=== PATIENT | male | born 1950 | race Caucasian/White ===

== ENCOUNTER 2019-08-10 13:08 | Day surgery (SDC) | payer OTHER ==
[~2019-08-10] VITALS: Ht 167.6 cm; Wt 78.9 kg
[~2019-08-10 13:08] MED LIST: LISINOPRIL5 MG PO
[2019-08-10] MEDS ORDERED: OMEPRAZOLE20 MG PO (13:36)
[2019-08-10] MEDS ORDERED: MULTI-VITAMIN1 EACH PO (13:36)
--- NOTE | 2019-08-10 15:33 | NUR ---
08/10/19 1533 Svetlana Viera 1528- PT ARRIVES TO PACU EASILY AROUSABLE TO VOICE. PT REPORTS NO PAIN OR NAUSEA AND FALLS TO SLEEP. RESP EVEN AND UNLABORED. OXYGEN SAT HIGH 90'S ON 2L VIA NC. 153- OXYGEN TITRATED OFF. 153- PT PASSING FLATUS.
--- NOTE | 2019-08-11 22:02 | OR ---
[facility] [address], [place] [address] Signed DATE OF OPERATION: 08/10/2019 SURGEON: Aaron Saul MD PREOPERATIVE DIAGNOSIS: Surveillance colonoscopy. POSTOPERATIVE DIAGNOSES: 1. Diverticulosis of sigmoid and left colon. 2. Internal hemorrhoids. PROCEDURE PERFORMED: Total colonoscopy to cecum. ANESTHESIA: Intravenous sedation, fentanyl 100 mcg and versed 5 mg. INDICATION: This 69-year-old white man is a patient of Dr. Briscoe, is referred for colonoscopy for surveillance. He last underwent colonoscopy 10 years ago in 2009, where he was found to have internal hemorrhoids. There were no other findings of concern. He is symptom free, having no bleeding, diarrhea, or constipation. He has no family history of colon cancer. He understands the risks of bleeding, infection, and perforation related to colonoscopy and wished to proceed. FINDINGS: The prep was excellent. Complete colonoscopy was undertaken to cecum without problem. He had numerous diverticula of the sigmoid and left colon, but no sign of polyps or colitis. Internal hemorrhoidal changes were noted as well. DESCRIPTION OF PROCEDURE: The patient was brought to the endoscopy suite and placed in lateral decubitus position, given intravenous sedation to the point of slurred speech and nystagmus. Digital rectal examination showed no abnormality. An Olympus video colonoscope was passed in the rectum and manipulated throughout the colon ultimately intubating the cecum itself. Numerous diverticula were seen in the sigmoid and left colon. The scope was withdrawn from the cecum and examination throughout showed no sign of polyps or colitis, only diverticular changes on the left side as described. Retroflexed view of the rectum did confirm some internal hemorrhoidal changes but no acute problem currently. Scope was straightened, withdrawn, and removed and the patient was taken to recovery room in good Electronically Signed By: AARON SAUL MD 08/11/19 4233 PATIENT NAME: LADAN SOTELO OPERATIVE REPORT DATE OF : 52 REPORT #: [id number] PHYSICIAN: AARON SAUL MD PCP: SUSANNAH BRISCOE MD REPORT IS CONFIDENTIAL AND NOT TO BE RELEASED WITHOUT AUTHORIZATION [facility] [address] [facility] [place], [place] [address] Signed condition. CONCLUDING DIAGNOSIS: Diverticular changes of sigmoid and internal hemorrhoids. No other abnormalities. PLAN: We would recommend repeat colonoscopy in 10 years, sooner if clinically indicated. Recommend also high-fiber diet or Citrucel one scoop p.o. daily. MD MAURICIO Abad/JERRICAL /[id number] cc: Dr. Briscoe Copies: ~ Electronically Signed By: AARON SAUL MD 08/11/19 2202 PATIENT NAME: LADAN SOTELO OPERATIVE REPORT DATE OF : 52 REPORT #: [id number] PHYSICIAN: AARON SAUL MD PCP: SUSANNAH BRISCOE MD REPORT IS CONFIDENTIAL AND NOT TO BE RELEASED WITHOUT AUTHORIZATION
== END 2019-08-10 16:10 | disposition home or self-care (01) ==
LOC: OPS 13:08 → DS 13:10 → OPS 14:00
PROVIDERS: Surgery
PROC: 0DJD8ZZ Inspection of Lower Intestinal Tract, Via Natural or Artificial Opening Endoscopic (ICD-10-PCS; principal; 2019-08-10 14:00)
DX: Z12.11 Encounter for screening for malignant neoplasm of colon (principal); K64.8 Other hemorrhoids; K57.30 Diverticulosis of large intestine without perforation or abscess without bleeding; K21.9 Gastro-esophageal reflux disease without esophagitis; I11.9 Hypertensive heart disease without heart failure; Z98.890 Other specified postprocedural states
CPT/HCPCS: 99153; G0500; J2250; J3010; J7121

== ENCOUNTER 2023-04-03 03:38 | Emergency (ER) | payer MEDICARE, OTHER ==
[~2023-04-03] VITALS: Ht 167.6 cm; Wt 78.9 kg
[~2023-04-03 03:38] MED LIST changes: +MULTI-VITAMIN1 EACH PO; +OMEPRAZOLE20 MG PO
[2023-04-03 06:00] VITALS: BP 146/84
--- NOTE | 2023-04-04 16:47 | EKG ---
[facility] [address] [facility] [place], [place] [address] Signed Normal sinus rhythm Normal ECG No previous ECGs available Confirmed by SAMINA NAVA MD ([id number]) on 04/04/2023 4:46:46 PM Electronically Signed By: SAMINA NAVA 04/04/23 1647 PATIENT NAME: LADAN SOTELO Electrocardiogram DATE OF : 52 PHYSICIAN: SAMINA NAVA REPORT #: [id number] REPORT IS CONFIDENTIAL AND NOT TO BE RELEASED WITHOUT AUTHORIZATION
== END 2023-04-03 06:04 | disposition home or self-care (01) ==
LOC: ED 03:38
DX: R10.9 Unspecified abdominal pain (principal); K80.20 Calculus of gallbladder without cholecystitis without obstruction; I10 Essential (primary) hypertension; Z79.899 Other long term (current) drug therapy
CPT/HCPCS: 36415; 74177; 76705; 80053; 81003; 83690; 85025; 85379; 93005; 93010; 96375; 99284 25; J1885; J2270; J2405; J7121; Q9967

== ENCOUNTER 2024-07-23 03:40 | Emergency (ER) | payer MEDICARE, OTHER ==
[~2024-07-23] VITALS: Ht 167.6 cm; Wt 76.4 kg
[2024-07-23] MEDS ORDERED: ondansetron HCL 4 MG/2 ML VIAL IV ONE (04:00)
[2024-07-23 04:04] LABS: BASOPHILS 1.5 % (0-2); EOSINOPHILS 6.5 % (0-6); HEMATOCRIT 46.5 % (35.0-50.0); HEMOGLOBIN 15.7 g/dL (12.0-18.0); LYMPHOCYTES 30.7 % (24-44); MCH 30.6 (27-36); MCHC 33.7 g/dl (30-36); MCV 90.5 fl (81-99); MONOCYTES 9.9 % (0-12); NEUTROPHILS 51.4 % (39-80); PLATELET COUNT 240 K/uL (140-440); RBC 5.13 M/ul (4.3-5.7); RDW 13.6 (10.5-15.0)
[2024-07-23 04:21] LABS: ALBUMIN/GLOBULIN RATIO 1.05 (1.1-2.4); BILIRUBIN, TOTAL 0.5 ng/dL (0.2-1.0); BUN/CREATININE RATIO 18.46 (6.0-28.6); CALCIUM 9.2 mg/dL (8.5-10.1); CREATININE, SERUM 1.3 mg/dL (0.70-1.30); MAGNESIUM 2.1 mg/dL (1.8-2.4); PROTEIN, TOTAL 7.8 g/dL (6.4-8.2)
[2024-07-23] MEDS ORDERED: MORPHINE SULFATE 4 MG/ML VIAL IV ONE (04:45)
[2024-07-23] MEDS ORDERED: LACTATED RINGER'S 1,000 ML IV ONE (04:45)
[2024-07-23] MEDS ORDERED: MIDAZOLAM HCL 100 MG in DEXTROSE 5% 80 ML IV SCH (05:00)
[2024-07-23] MEDS ORDERED: HYDROmorphone HCL 1 MG/ML SYR IV PRN (06:00)
[2024-07-23] MEDS ORDERED: KETOROLAC TROMETHAMINE 30 MG/ML VIAL IV ONE (06:00)
[2024-07-23 06:10] LABS: BILIRUBIN, URINE NEGATIVE (negative); BLOOD/HGB, URINE NEGATIVE (Negative); KETONE, URINE NEGATIVE (Negative); LEUK ESTERASE, URINE NEGATIVE (negative); NITRITE, URINE NEGATIVE (negative)
[2024-07-23 06:44] LABS: INFLUENZA B NAA NEGATIVE (NEGATIVE); RESPIRATORY SYNCYTIAL VIR NAA NEGATIVE (NEGATIVE)
[2024-07-23] MEDS ORDERED: ONDANSETRON ODT8 MG PO (07:07)
[2024-07-23] MEDS ORDERED: TRAMADOL HCL50 MG PO (07:07)
[2024-07-23] MEDS ORDERED: DICYCLOMINE HCL10 MG PO (07:07)
[2024-07-23 07:24] VITALS: BP 139/81
== END 2024-07-23 07:26 | disposition home or self-care (01) ==
LOC: ED 03:40
PROVIDERS: Family Medicine
DX: A08.4 Viral intestinal infection, unspecified (principal); I10 Essential (primary) hypertension; Z79.899 Other long term (current) drug therapy
CPT/HCPCS: 36415; 74177; 80053; 81003; 83690; 83735; 85025; 85379; 87502; 96361; 96375; 99284-25; J1171; J1885; J2270; J2405; J7121; Q9967; U0002

== ENCOUNTER 2024-10-15 07:55 | Day surgery (SDC) | payer MEDICARE, OTHER ==
[2024-10-12 15:58] VITALS: BP 128/98
[~2024-10-15] VITALS: Ht 167.6 cm; Wt 77.3 kg
[~2024-10-15 07:55] MED LIST changes: +CEFAZOLIN SODIUM 2 GM/20 ML SYR IV SCH; +DEXAMETHASONE SOD PHOS 4 MG/ML VIAL ONE; +DICYCLOMINE HCL10 MG PO; +FAMOTIDINE 20 MG/ 2 ML VIAL ONE; +HEParin SOD (PORCINE) 5,000 UNIT/ML SDV SUB-Q SCH; +IBLOOD GLUCOSE TEST STRIP 1 EA TEST VI PRN; +KETOROLAC TROMETHAMINE 30 MG/ML VIAL ONE; +LACTATED RINGER'S 1,000 ML IV ONE; +LACTATED RINGER'S 1,000 ML IV SCH; +LIDOCAINE HCL 1% 5 ML SDV INJ ONE; +LIDOCAINE HCL 4% 5 ML AMP ONE; +METOCLOPRAMIDE HCL 10 MG/2 ML SDV ONE; +MIDAZOLAM HCL 2 MG/2 ML VIAL ONE; +ONDANSETRON ODT8 MG PO; +ROCURONIUM BROMIDE 50 MG/5 ML SYR ONE; +SUCCINYLCHOLINE IN 0.9% NACL 200 MG/10 ML SYRINGE ONE; +SUGAMMADEX SODIUM 200 MG/2 ML ML ONE; +TRAMADOL HCL50 MG PO; +fentaNYL citrate 100 MCG/2 ML VIAL ONE; +ondansetron HCL 4 MG/2 ML VIAL ONE; +propofoL 200 MG/20 ML VIAL ONE
[2024-10-15 08:22] VITALS: BP 139/80
[2024-10-15] MEDS ORDERED: iopamidoL 30 ML VIAL ONE (08:24)
[2024-10-15] MEDS ORDERED: SODIUM CHLORIDE 0.9% 60 ML IV ONE (08:25)
[2024-10-15] MEDS ORDERED: propofoL 200 MG/20 ML VIAL ONE (09:16)
[2024-10-15] MEDS ORDERED: ondansetron HCL 4 MG/2 ML VIAL IV PRN (09:45)
[2024-10-15] MEDS ORDERED: MORPHINE SULFATE 10 MG/ML VIAL IV PRN (09:45)
[2024-10-15] MEDS ORDERED: NALOXONE HCL 0.4 MG SYR IV PRN ×2 (09:45→11:00)
[2024-10-15] MEDS ORDERED: fentaNYL citrate 50 MCG/ML SDV IV PRN (09:45)
[2024-10-15] MEDS ORDERED: PROCHLORPERAZINE EDISYLATE 10 MG/2 ML VIAL IV PRN (09:45)
[2024-10-15] MEDS ORDERED: IBLOOD GLUCOSE TEST STRIP 1 EA TEST VI PRN (09:45)
[2024-10-15] MEDS ORDERED: METOCLOPRAMIDE HCL 10 MG/2 ML SDV IV PRN (09:45)
[2024-10-15] MEDS ORDERED: droPERidol 5 MG/2 ML VIAL IV PRN (09:45)
--- NOTE | 2024-10-15 10:48 | NUR ---
10/15/24 1048 Lori Velez 1037-PT ARRIVES TO PACU VIA STRETCHER RESTING SEMI FOWLERS, PT NOT RESPONSIVE TO NOXIOUS STIMULI, VSS ON 10L VIA MASK AND OPA IN PLACE, PT REQUIRING MANUAL JAW THRUST. RR EVEN AND UNLABORED.
[2024-10-15] MEDS ORDERED: TYLENOL EXTRA500 MG PO (10:53)
[2024-10-15] MEDS ORDERED: PERCOCET 7.5-31 EACH PO (10:53)
[2024-10-15] MEDS ORDERED: MOTRIN IB200 MG PO (10:54)
[2024-10-15] MEDS ORDERED: IBUPROFEN 600 MG TAB PO PRN (11:00)
[2024-10-15] MEDS ORDERED: OXYCODONE/APAP 7.5/325 TAB PO PRN (11:00)
[2024-10-15] MEDS ORDERED: LACTATED RINGER'S 1,000 ML IV SCH (11:00)
[2024-10-15] MEDS ORDERED: ACETAMINOPHEN 500 MG TAB PO PRN (11:00)
[2024-10-15 11:25] VITALS: BP 129/95
[2024-10-15 12:25] VITALS: BP 122/69
--- NOTE | 2024-10-15 12:35 | NUR ---
1125: PATIENT BACK IN DAY SURGERY ROOM FROM PACU. RATES PAIN 4/10 IN ABDOMEN. ABDOMEN WITH LAP SITES X 5. ALL WITH STERI STRIPS AND SCANT AMOUNT OF RED DRAINAGE. IV SITE WNL. SCDs ON. TOLERATING WATER. GIVEN APPLESAUCE AND APPLE JUICE. VS CHECKED. PATIENT DROWSY. AT BEDSIDE. CALL LIGHT WITHIN REACH.
[2024-10-15 13:25] VITALS: BP 123/65
--- NOTE | 2024-10-15 14:22 | OR ---
[facility] [address], [place] [address] Signed DATE OF OPERATION: 10/15/2024 SURGEON: Aaron Saul MD PREOPERATIVE DIAGNOSIS: Chronic calculous cholecystitis. POSTOPERATIVE DIAGNOSES: 1. Chronic calculous cholecystitis. 2. Gallbladder adhesions. PROCEDURES: 1. Laparoscopic cholecystectomy with intraoperative cholangiogram, prolonged, complicated, and difficult. 2. Surgeon-directed fluoroscopy. ANESTHESIA: General endotracheal; Aaron Yang CRNA and local 10 mL of 0.25% Marcaine with epinephrine. INDICATIONS FOR THE PROCEDURE: This 74-year-old white man is a patient of Dr. Susannah Briscoe and has had episodic right upper abdominal pain. He presented to the emergency room, where he was evaluated for this. A CT scan was performed, which was negative. The report from August 06, 2024, reviewed, showed no evidence of acute cholecystitis, though he certainly had symptoms typical of biliary disease. He ultimately underwent a CCK-HIDA test ordered by Dr. Briscoe, which showed no filling of the gallbladder most consistent with acute cholecystitis. Recently, his symptoms have much diminished; normally he has right upper abdominal pain and epigastric pain following oral intake. His symptoms are typical of biliary disease. To my knowledge, he never had a gallbladder ultrasound. With a HIDA scan showing no filling of the gallbladder itself, he is highly likely to have cholecystitis with partial or complete occlusion of the cystic duct. I have recommended cholecystectomy and he understands the risk of bleeding, infection, bile duct injury, need for open surgery, and other unforeseen complications. Understanding this, he wished to proceed. FINDINGS: Indeed the gallbladder was quite chronically inflamed and very thickened. Dense omental adhesions were noted to the gallbladder as well. The liver itself was normal. Cholangiogram was normal. The gallbladder once opened, had multiple large and small Electronically Signed By: AARON SAUL MD 10/15/24 1422 PATIENT NAME: LADAN SOTELO OPERATIVE REPORT DATE OF : 52 REPORT #: [id number] PHYSICIAN: AARON SAUL MD PCP: SUSANNAH BRISCOE MD REPORT IS CONFIDENTIAL AND NOT TO BE RELEASED WITHOUT AUTHORIZATION [facility] [address], [place] [address] Signed gallstones and chronic inflammatory change in mucosa, but no evidence of neoplasm proper. DESCRIPTION OF PROCEDURE: The patient was brought to the operating room, given a general endotracheal anesthetic. Preoperative antibiotic Ancef was given. Sequential compression device stockings used and heparin subcutaneously administered. The abdomen was clipped and prepared with chlorhexidine solution and draped sterilely. There was redundant umbilical skin, which was not associated with any discernible hernia proper. An infraumbilical incision was made using an open Donna cannula technique. Pneumoperitoneum was achieved to a level of 14 mmHg of carbon dioxide gas. Intra-abdominal inspection showed no sign of ascites or carcinomatosis. The liver was normal. The gallbladder was obscured from view initially. Three additional trocars were placed in usual configuration in the subxiphoid, right midclavicular, and right anterior axillary line. The gallbladder was from adhesions with blunt electrocautery dissection. The gallbladder could not be grasped due to thickening of the gallbladder and likely large stones. On that basis, decompression was undertaken with a needle device draining some turbid greenish bile. The gallbladder was able to be grasped and elevated and the infundibulum was noted to have a fair amount of fatty tissue. This was with blunt electrocautery dissection, ultimately identifying well with cystic duct. Hand retractor was placed through a separate 5 mm port to assist in visualization of the infundibulum. Ultimately, the cystic duct was dissected free quite completely and a clip applied across gallbladder at cystic duct junction. There was a large stone wedged in the infundibulum, it was noted. A transverse choledochotomy in the cystic duct allowed for egress of clear bile. An Hayes type cholangiocatheter was inserted into the cystic duct. Intraoperative cholangiography undertaken with free flow of contrast through the biliary tree noted. There was no sign of filling defect in the common bile duct nor any biliary anomaly. The catheter was removed and the cystic duct was then triply clipped and divided. The gallbladder was dissected free in a retrograde fashion using electrocautery. Clips were applied to cystic arterial branches. There were noted to be within a dense fibrous posterior wall of the gallbladder. The gallbladder was ultimately excised fully, though entry to liver parenchyma did occur due to the difficulty of dissection of the densely and chronically inflamed gallbladder. The gallbladder was placed in an Endobag and extracted through the infraumbilical port. Note was made of spillage of one stone during the course of dissection and this stone was retrieved as well. There were no stones remaining. Irrigation was undertaken in subhepatic space. Electrocautery was used to secure hemostasis more fully. Given the extent of dissection and so forth, Carlota hemostatic agent was applied to the raw surface of the gallbladder fossa and excess irrigation fluid suctioned free. Electronically Signed By: AARON SAUL MD 10/15/24 1422 PATIENT NAME: LADAN SOTELO OPERATIVE REPORT DATE OF : 52 REPORT #: [id number] PHYSICIAN: AARON SAUL MD PCP: SUSANNAH BRISCOE MD REPORT IS CONFIDENTIAL AND NOT TO BE RELEASED WITHOUT AUTHORIZATION [facility] [address] [place] [address] Signed The trocars were removed under direct visualization showing no sign of bleeding. The infraumbilical fascial incision was reapproximated with interrupted 0-Vicryl suture. A 10 mL of 0.25% Marcaine with epinephrine was injected locally. The skin was closed with interrupted 2-0 Vicryl and Steri-Strips were applied. He was ultimately extubated and transferred to the recovery room in good condition, having suffered no complications. Sponge, needle, and instrument counts reported as correct x3. MD MAURICIO Abad/PUNEET /[id number] cc: Susannah Briscoe MD Copies: SUSANNAH BRISCOE MD ~ Electronically Signed By: AARON SAUL MD 10/15/24 1422 PATIENT NAME: LADAN SOTELO OPERATIVE REPORT DATE OF : 52 REPORT #: [id number] PHYSICIAN: AARON SAUL MD PCP: SUSANNAH BRISCOE MD REPORT IS CONFIDENTIAL AND NOT TO BE RELEASED WITHOUT AUTHORIZATION
[2024-10-15 14:45] VITALS: BP 142/82
[2024-10-15 15:15] VITALS: BP 141/83
--- NOTE | 2024-10-15 15:24 | NUR ---
1305: CHECKED PATIENT. PATIENT SLEEPING. 1325: VS CHECKED. IV SITE WNL. SCDs ON. RATES PAIN 10/02. AT BEDSIDE. CALL LIGHT WITHIN REACH. 1345: DISCHARGE INSTRUCTIONS GIVEN TO PATIENT AND . PATIENT ASSISTED TO SIT ON SIDE OF BED. C/O LIGHT HEADEDNESS. PATIENT ALLOWED TO SIT ON SIDE OF BED FOR ADDITIONAL TIME. PATIENT THEN STOOD UP AT SIDE OF BED WITH RN ASSIST. PATIENT BECAME TO LIGHTHEADED TO WALK TO BATHROOM. PATIENT ASSISTED BACK TO BED. WILL REST IN BED BEFORE GETTING UP TO BATHROOM. 1437: PATIENT AWAKENED FROM SLEEPING. STATES FEELING LESS DIZZY. WILL TAKE A LITTLE MORE TIME BEFORE GETTING UP TO BATHROOM. 1500: PATIENT ASSISTED TO SIT AT SIDE OF BED. PATIENT STATES FEELS LIGHT LIGHTHEADEDNESS THAN LAST TIME. PATIENT THEN STOOD AT BEDSIDE. THEN ASSISTED TO WALK TO BATHROOM BY THIS RN AND . GAIT STEADY. 1510: STAND BY ASSIST WHILE WALKING FROM BATHROOM BACK TO ROOM. VOID WITHOUT DIFFICULTY. PATIENT SITTING ON SIDE OF BED. 1520: VS CHECKED. PATIENT STATES READY TO GO HOME. IV DC'D WNL. TIP INTACT. DRESSING APPLIED. DAUGHTER AND GRANDKIDS IN TO VISIT PATIENT. 1533: PATIENT DISCHARGED TO HOME VIA WHEELCHAIR WITH .
--- NOTE | 2024-10-15 22:22 | EKG ---
[facility] [address] [facility] [place] [address] Signed Normal sinus rhythm Normal ECG When compared with ECG of 03-APR-2023 04:00, No significant change was found Confirmed by Ritu De La Vega MD () on 10/15/2024 10:22:16 PM Electronically Signed By: RITU DE LA VEGA MD 10/15/242221 PATIENT NAME: LADAN SOTELO Electrocardiogram DATE OF : 52 PHYSICIAN: RITU DE LA VEGA MD REPORT #: [id number] REPORT IS CONFIDENTIAL AND NOT TO BE RELEASED WITHOUT AUTHORIZATION
--- NOTE | 2024-10-19 13:23 | PATH ---
[facility] [address] [place] [place] [address] Signed SPECIMEN(S): A GALLBLADDER AND STONES SPECIMEN SOURCE: A. GALLBLADDER AND STONES CLINICAL HISTORY: Chronic cholecystitis with calculus FINAL PATHOLOGIC DIAGNOSIS: Gallbladder and stones: - Chronic calculous cholecystitis. JVR:froilan MICROSCOPIC EXAMINATION: Histologic sections of all submitted blocks are examined by light microscopy. These findings, together with the gross examination, support the pathologic diagnosis. GROSS DESCRIPTION: The specimen, labeled and designated "Fish, S, " and designated on the requisition "gallbladder with stones," is received in formalin and consists of Specimen: Previously opened gallbladder. Dimensions: 7.4 x 3.8 x 1.2 cm. Serosa: Violaceous and focally congested with adherent adipose tissue. Cystic Duct: Inked, patency cannot be grossly assessed. Calculi: 4.0 x 3.8 x 1.4 cm aggregate of a green-black smooth, angular calculi. Mucosa: [place]-red trabeculated with areas of erosion. Wall thickness: 0.4 cm. Lymph node: No pericystic lymph nodes are grossly identified. Additional: None. Satellite Tv Technician sections are submitted in (A1-A2). FB (under the direct supervision of a pathologist) The Gross Description was prepared using a voice recognition system. The report was reviewed for accuracy; however, sound-alike word errors, addition and/or deletions may occur. If there is any question about this report, please contact Client Services. PERFORMING LABORATORY: Technical component was performed by [facility], [address] [place] [id number] (CLIA# [id number]). Professional interpretation was performed by [facility] - [place], [address] PATIENT NAME: LADAN SOTELO PATHOLOGY DATE OF : 52 REPORT #: [id number] PHYSICIAN: [facility] PCP: SUSANNAH CROWE MD REPORT IS CONFIDENTIAL AND NOT TO BE RELEASED WITHOUT AUTHORIZATION [facility] [address] [place], [place] [address], [place] [address] (CLIA#: [id number]). Diagnostician: Rubio Avilez MD Pathologist Electronically Signed 10/19/2024 Copies: ~ PATIENT NAME: LADAN SOTEOL PATHOLOGY DATE OF : 52 REPORT #: [id number] PHYSICIAN: [facility] PCP: SUSANNAH CROWE MD REPORT IS CONFIDENTIAL AND NOT TO BE RELEASED WITHOUT AUTHORIZATION
== END 2024-10-15 15:33 | disposition home or self-care (01) ==
LOC: DS 07:55
PROVIDERS: ATTEND Surgery
PROC: BF13YZZ Fluoroscopy of Gallbladder and Bile Ducts using Other Contrast (ICD-10-PCS; 2024-10-15)
PROC: 0FT44ZZ Resection of Gallbladder, Percutaneous Endoscopic Approach (ICD-10-PCS; principal; 2024-10-15 09:00)
DX: K80.10 Calculus of gallbladder with chronic cholecystitis without obstruction (principal); K82.8 Other specified diseases of gallbladder; I10 Essential (primary) hypertension; K21.9 Gastro-esophageal reflux disease without esophagitis; Z79.899 Other long term (current) drug therapy
CPT/HCPCS: 00790; 74300; 93005; 93010; J0330; J0690; J1100; J1644; J1885; J2250; J2405; J2704; J2765; J3010; J3490; J7121; Q9967

== ENCOUNTER 2025-09-16 18:11 | Emergency (ER) | payer MEDICARE, OTHER ==
[~2025-09-16] VITALS: Ht 167.6 cm; Wt 75.0 kg
[~2025-09-16 18:11] MED LIST changes: -CEFAZOLIN SODIUM 2 GM/20 ML SYR IV SCH; -DEXAMETHASONE SOD PHOS 4 MG/ML VIAL ONE; -FAMOTIDINE 20 MG/ 2 ML VIAL ONE; -HEParin SOD (PORCINE) 5,000 UNIT/ML SDV SUB-Q SCH; -IBLOOD GLUCOSE TEST STRIP 1 EA TEST VI PRN; -KETOROLAC TROMETHAMINE 30 MG/ML VIAL ONE; -LACTATED RINGER'S 1,000 ML IV ONE; -LACTATED RINGER'S 1,000 ML IV SCH; -LIDOCAINE HCL 1% 5 ML SDV INJ ONE; -LIDOCAINE HCL 4% 5 ML AMP ONE; -METOCLOPRAMIDE HCL 10 MG/2 ML SDV ONE; -MIDAZOLAM HCL 2 MG/2 ML VIAL ONE; +MOTRIN IB200 MG PO; +PERCOCET 7.5-31 EACH PO; -ROCURONIUM BROMIDE 50 MG/5 ML SYR ONE; -SUCCINYLCHOLINE IN 0.9% NACL 200 MG/10 ML SYRINGE ONE; -SUGAMMADEX SODIUM 200 MG/2 ML ML ONE; +TYLENOL EXTRA500 MG PO; -fentaNYL citrate 100 MCG/2 ML VIAL ONE; -ondansetron HCL 4 MG/2 ML VIAL ONE; -propofoL 200 MG/20 ML VIAL ONE
[2025-09-16] MEDS ORDERED: IBLOOD GLUCOSE TEST STRIP 1 EA TEST XX ONE (18:30)
[2025-09-16 18:37] LABS: BASOPHILS 0.4 % (0.2-1.2); EOSINOPHILS 0.2 % (0.8-7.0); LYMPHOCYTES 19.1 % (21.8-53.1); MCH 29.5 PG (25.7-32.2); MCHC 33.8 g/dL (32.3-36.5); MCV 87.3 fL (79.0-92.2); MONOCYTES 6.2 % (5.3-12.2); NEUTROPHILS 73.8 % (34.0-67.9); RBC 5.36 M/uL (4.63-6.08)
[2025-09-16 19:01] LABS: ALT (SGPT) 28.0 U/L (14-59); AST (SGOT) 19.0 U/L (15-37); GLOMERULAR FILTRATION RATE,EST 67.0 mL/min (>60); PROTEIN, TOTAL 8.3 g/dL (6.4-8.2); UREA NITROGEN 18.0 mg/dL (7-18)
[2025-09-16] MEDS ORDERED: MECLIZINE HCL 25 MG TAB PO ONE (19:45)
[2025-09-16] MEDS ORDERED: LACTATED RINGER'S 1,000 ML IV ONE (19:45)
[2025-09-16] MEDS ORDERED: MECLIZINE HCL25 MG PO (21:54)
[2025-09-16] MEDS ORDERED: METHYLPREDNISOLO4 M1 PO (21:54)
[2025-09-16 22:05] VITALS: BP 143/76
--- NOTE | 2025-09-17 16:12 | EKG ---
[facility] [address] [facility] [place] [address] Signed Normal sinus rhythm Normal ECG When compared with ECG of 15-OCT-2024 08:10, No significant change was found Confirmed by Duarte Todd DO ([id number]) on 09/17/2025 4:12:37 PM Electronically Signed By: DUARTE TODD DO 09/17/25 1612 PATIENT NAME: ASHLEIGHLADAN JERSONKARAN Electrocardiogram DATE OF : 52 PHYSICIAN: DUARTE TODD DO REPORT #: [id number] REPORT IS CONFIDENTIAL AND NOT TO BE RELEASED WITHOUT AUTHORIZATION
== END 2025-09-16 22:08 | disposition home or self-care (01) ==
LOC: ED 18:11
PROVIDERS: Emergency Medicine
DX: H81.10 Benign paroxysmal vertigo, unspecified ear (principal); I10 Essential (primary) hypertension; K21.9 Gastro-esophageal reflux disease without esophagitis
CPT/HCPCS: 36415; 80053; 83735; 84484; 85025; 93005; 93010; 96361; 96374; 99284-25; A9270; J2405; J7121